=== PATIENT | male | born 1995 | race Caucasian/White ===

== ENCOUNTER → 2018-11-19 09:55 | Outpatient (CLI) | payer OTHER, SELFPAY ==
--- NOTE | 2018-11-19 | CA_ITS ---
APPROVED REPORT EXAM: Comprehensive 2D, Doppler, and color-flow Echocardiogram Clerk Secretary: Marisa Murillo RDCS Ht: 6 ft 2 in Wt: 245lbs BSA: 2.37 BP: 113/65 mmHg Indications: Palpitations, Hypertension/HDD 2D Dimensions LVOT 2.10 cm (M/F) 1.5-2.5 M-Mode Dimensions RVDd 2.90 cm (0.9-2.6) LA Diam 4.20 cm (1.9-4.0) LVDd 5.90 cm (3.5-5.7) Ao Diam 3.10 cm (2.0-3.7) LVDs 4.60 cm (3.5-5.7) AV Cusp 1.60 cm (1.5-2.6) IVSd 0.90 cm (0.6-1.1) PWd 0.90 cm (0.6-1.1) EF (Teich) 43.80% FS 22.00% EDV (Teich) 173.00 mL ESV (Teich) 97.30 mL LV Diastology E/A Ratio 1.7 MED E' 12.00 (< 7 cm/sec) E'/MED E' Ratio 8.10 (>14) LAT E' 21.40 (<10 cm/sec) E/LAT E' Ratio 4.60 (>14) Mitral Valve MV E Max Damon. 97.70 (40-130 cm/s) MV A Velocity 57.80 (40-130 cm/s) E/A Ratio 1.70 Left Ventricle Left atrium is normal size, left ventricle is normal size, there is no concentric left ventricular hypertrophy, visually estimated ejection fraction 55% with no regional wall motion abnormality. Diastolic parameters are within normal range. Right Ventricle Right atrium and right ventricular normal size and contractility. Aortic Valve Aortic valve is normal, there is no aortic stenosis aortic insufficiency. Mitral Valve Mitral valve is normal, there is no mitral stenosis, there is trace mitral regurgitation. Tricuspid Valve Tricuspid valve is grossly normal, there is trace tricuspid regurgitation Pulmonic Valve Pulmonic valve is poorly visualized. Great Vessels Aortic root is normal size. Pericardium No significant pericardial effusion noted. Conclusion 1. Normal left ventricular size, preserved left ventricular systolic function, visually estimated ejection fraction of 55% with no regional wall motion abnormality. Diastolic parameters are within normal range. 2. Trace mitral and tricuspid regurgitation 3. No significant pericardial effusion noted. Electronically signed by : Alcides Love, 11/20/2018 06:08:53
== END ==
PROVIDERS: PCP Internal Medicine Adolescent Medicine; Visit Provider Internal Medicine Adolescent Medicine
DX: R00.2 Palpitations (principal)
CPT/HCPCS: 93306

== ENCOUNTER → 2020-09-16 11:42 | Outpatient (CLI) | payer BC, SELFPAY ==
[2020-09-16 13:45] LABS: Basophils # 0.1 K/mm3 (0-0.2); Eosinophils # 0.1 K/mm3 (0.0-0.4); Eosinophils % 0.8 % (0.1-12.0); Hematocrit 49.1 % (42.0-52.0); Lymphocytes # 0.9 K/mm3 (0.7-4.5); Lymphocytes % 7.8 % (10-50); Mean Corpuscular HGB Conc 34.7 g/dL (31.8-35.4); Mean Corpuscular Volume 83.7 fl (80-94); Mean Platelet Volume 8.6 fl (7.4-10.4); Monocytes # 0.5 K/mm3 (0.1-1.0); Monocytes % 4.2 % (1.7-9.3); Neutrophils # 9.6 K/mm3 (1.8-7.8); Neutrophils % 86.2 % (37.0-80.0); Platelet Count 191 K/mm3 (142-424); Red Blood Count 5.87 M/mm3 (4.60-6.20); Red Cell Distribution Width 13.6 % (11.5-17.5); White Blood Count 11.2 K/mm3 (4.8-10.8)
[2020-09-16 13:52] LABS: MANUAL DIFFERENTIAL MANUAL DIFFERENTIAL (MANUAL DIFF)
[2020-09-16 14:04] LABS: Lymphocytes % 12 % (10-50); Monocytes % 9 % (2-9); Neutrophils % 79 % (42-76); Platelet Estimate Normal; RBC Morphology Normal; Total Cells Counted 100
[2020-09-16 14:09] LABS: Chloride 104 mmol/L (98-107); Sodium 138 mmol/L (136-145)
[2020-09-16 14:12] LABS: Alanine Aminotransferase 23 U/L (12-78); Albumin Level 3.9 g/dl (3.5-5.0); Albumin/Globulin Ratio 1.4 (1.1-1.8); Alkaline Phosphatase 70 U/L (38-126); Aspartate Amino Transferase 30 U/L (17-59); Bilirubin,Total 0.7 mg/dl (0.2-1.3); Blood Urea Nitrogen 13 mg/dl (9-20); Calcium 9.1 mg/dl (8.4-10.2); Carbon Dioxide 21 mmol/L (22.0-30.0); Estimated Glomerular Filt Rate 81 ml/min (>60); GFR (African American) 98 ML/MIN (>60); Globulin 2.7 g/dL (1.3-3.2); Glucose 103 mg/dl (74-100); Total Protein,Serum 6.6 g/dl (6.3-8.2)
== END ==
PROVIDERS: Visit Provider Internal Medicine Adolescent Medicine
DX: Z11.52 Encounter for screening for COVID-19 (principal); R50.9 Fever, unspecified; R05 Cough
CPT/HCPCS: 36415; 80053; 85007; 85025; U0003

== ENCOUNTER → 2021-11-28 16:12 | Outpatient (CLI) | payer BC, SELFPAY | PROVIDERS: PCP Internal Medicine Adolescent Medicine; Visit Provider Nurse Practitioner Family | DX: R00.1 Bradycardia, unspecified (principal); R53.83 Other fatigue | CPT/HCPCS: 93225; 93226 ==

== ENCOUNTER → 2021-12-08 14:59 | Outpatient (CLI) | payer BC, SELFPAY ==
--- NOTE | 2021-12-08 | CA_ITS ---
APPROVED REPORT EXAM: Comprehensive 2D, Doppler, and color-flow Echocardiogram Pumpman: Tameka Miller, DANYELL, RVS Ht: 6 ft 2 in Wt: 245lbs BSA: 2.37 BP: 113/65 mmHg Indications: Bradycardia 2D Dimensions Aortic Root 2.88 cm LA Volume 54.20 mL Left Atrium 3.49 cm LA Volume Index 22.90 mL/m2 (M/F) 16-34 LVOT 1.83 cm (M/F) 1.5-2.5 M-Mode Dimensions RVDd 3.13 cm (0.9-2.6) LA Diam 4.00 cm (1.9-4.0) LVDd 5.59 cm (3.5-5.7) Ao Diam 2.99 cm (2.0-3.7) LVDs 2.89 cm (3.5-5.7) IVSd 1.04 cm (0.6-1.1) PWd 1.08 cm (0.6-1.1) EF (Teich) 79.20% EPSs 0.20 cm FS 48.30% EDV (Teich) 153.00 mL TAPSE 2.83 (<1.7) ESV (Teich) 31.90 mL LV Diastology E Decel Time 170.00 (160-240 msec) E/A Ratio 2.68 MED E' 12.20 (< 7 cm/sec) MED A' 8.80 cm/s E'/MED E' Ratio 8.14 (>14) LAT E' 18.80 (<10 cm/sec) LAT A' 11.50 cm/s E/LAT E' Ratio 5.28 (>14) Aortic Valve LVOT Max 111.00 (70-110 cm/s) LVOT VTI 23.07 cm AoV Peak Damon. 146.00 (50-130 cm/s) AO Peak GR. 8.50 mmHg AO Mean GR. 4.20 (<5 mmHg) AO VTI 29.34 (18-25 cm) AYANA (VTI) 2.07 (2.5-4.5 cm2) Mitral Valve MV A Velocity 37.00 (40-130 cm/s) E/A Ratio 2.68 MV Decel. Time 170.00 (160-240 ms) Pulmonary Valve PV Peak Velocity 110.00 (50-150 cm/s) Tricuspid Valve TR P. Velocity 165.00 cm/s Left Ventricle Left atrium is normal size, left ventricle is normal size there is no concentric left ventricular hypertrophy, estimated ejection fraction 55% with no regional wall motion abnormality, diastolic parameters are within normal range. Right Ventricle Right atrium and right ventricle are normal size and contractility. Aortic Valve Aortic valve is grossly normal, there is no aortic stenosis or aortic insufficiency. Mitral Valve Mitral valve grossly normal, there is no mitral stenosis or mitral regurgitation. Tricuspid Valve Tricuspid valve is grossly normal, there is no significant tricuspid regurgitation noted. Pulmonic Valve Pulmonic valve is poorly visualized Great Vessels Aortic root is normal size. Inferior vena cava is normal size with normal inspiratory collapse. Pericardium No significant pericardial effusion noted. Conclusion 1. Normal left ventricular size preserved left ventricular systolic function, estimated ejection fraction 55% with no regional wall motion abnormality, diastolic parameters are within normal range. 2. No significant pericardial effusion noted. 3. Inferior vena cava is normal size with normal inspiratory collapse. Electronically signed by : Alcides Love MD 12/09/2021 11:55:59
== END ==
PROVIDERS: PCP Internal Medicine Adolescent Medicine; Visit Provider Nurse Practitioner Family
DX: R40.0 Somnolence; R06.83 Snoring; G47.39 Other sleep apnea; I10 Essential (primary) hypertension; R00.1 Bradycardia, unspecified; R00.2 Palpitations
CPT/HCPCS: 93306; G0399

== ENCOUNTER → 2023-02-14 16:53 | Outpatient (CLI) | payer OTHER, SELFPAY ==
[2023-02-14 16:31] LABS: Basophils # 0.1 K/mm3 (0-0.2); Basophils % 0.9 % (0.1-2.0); Eosinophils # 0.3 K/mm3 (0.0-0.4); Eosinophils % 3.6 % (0.1-12.0); Hematocrit 51.9 % (42.0-52.0); Hemoglobin 17.3 g/dL (14.1-18.0); Lymphocytes # 2.1 K/mm3 (0.7-4.5); Lymphocytes % 25.4 % (10-50); Mean Corpuscular HGB Conc 33.3 g/dL (31.8-35.4); Mean Corpuscular Hemoglobin 29.4 pg (27.0-31.2); Mean Corpuscular Volume 88.5 fl (80-94); Mean Platelet Volume 8.4 fl (7.4-10.4); Monocytes # 0.5 K/mm3 (0.1-1.0); Monocytes % 6.2 % (1.7-9.3); Neutrophils # 5.3 K/mm3 (1.8-7.8); Neutrophils % 63.9 % (37.0-80.0); Platelet Count 242 K/mm3 (142-424); Red Blood Count 5.87 M/mm3 (4.60-6.20); Red Cell Distribution Width 13.8 % (11.5-17.5); White Blood Count 8.3 K/mm3 (4.8-10.8)
[2023-02-14 16:37] LABS: Alanine Aminotransferase 50 U/L (12-78); Albumin Level 4.7 g/dl (3.5-5.0); Albumin/Globulin Ratio 1.7 (1.1-1.8); Alkaline Phosphatase 72 U/L (38-126); Aspartate Amino Transferase 52 U/L (17-59); Bilirubin,Total 0.9 mg/dl (0.2-1.3); Blood Urea Nitrogen 13 mg/dl (9-20); Calcium 9.2 mg/dl (8.4-10.2); Carbon Dioxide 27 mmol/L (22.0-30.0); Chloride 100 mmol/L (98-107); Cholesterol 205 mg/dl (140-200); Estimated Glomerular Filt Rate 79 ml/min (>60); GFR (African American) 96 ML/MIN (>60); Globulin 2.8 g/dL (1.3-3.2); Glucose 65 mg/dl (74-100); HDL Cholesterol 41 mg/dl (40-60); Sodium 137 mmol/L (136-145); Total Protein,Serum 7.5 g/dl (6.3-8.2); Triglycerides 101 mg/dl (30-150); VLDL Cholesterol 20 mg/dL (0-40)
[2023-02-14 17:07] LABS: Anion Gap 14.2 mEq/L (5-15); Potassium 4.2 mmoL/L (3.5-5.1)
[2023-02-14 17:20] LABS: Direct LDL Cholesterol 131.79 mg/dL (100-129)
== END ==
PROVIDERS: PCP Family Medicine; Visit Provider Family Medicine
DX: I10 Essential (primary) hypertension (principal)
CPT/HCPCS: 80053; 80061; 85025

== ENCOUNTER 2023-06-28 07:53 | Day surgery (SDC) | payer OTHER, SELFPAY ==
[2023-06-27 11:04] VITALS: BMI 28.2
[2023-06-28 08:09] VITALS: BP 126/58; PULSE 49; RESP 18; TEMP 36.1; O2SAT 100; BMI 28.2
[2023-06-28] MEDS: LACTATED RINGERS 1000ML 1,000 ML 25 ML IV (08:09)
--- NOTE | 2023-06-28 08:36 | P.PNANES_ITS ---
[facility] Disclaimer: The information contained in this section may have been updated after the patient was seen, as this information can be updated by other users. Medical History Chronic GERD Surgical History History of esophagogastroduodenoscopy (EGD) History of knee surgery History of tonsillectomy Family History Mother Lupus Social History Smoking Status: Never smoker second hand exposure: No alcohol intake: current alcohol intake frequency: holidays/special occasions only substance use type: denies use current occupational status: employed Travel in the last 8 weeks: None household members: spouse and children housing: house marital status: current occupation: [employer] current occupational exposures/hazards: No caffeine: Yes [facility] Anesthesia Checklist Patient Identification Patient Identification: Verbal (Name & ) Structural Data Admitted From: Home Planned Operative Procedure/s: egd Consent for Planned Operative Procedure(s) Verified: Yes Additional verifications Anesthesia Reactions: No Airway Assessment Mallampati Score:: Class II C-Spine Mobility Assessed: Yes TMJ Mobility Assessed: Yes Dentition: Good Dentition Neurological Assessment Level of Consciousness: Awake, Alert and Appropriate Anesthesia Plan Anesthesia Risk discussed: Yes Anesthesia Plan: Verified ASA Class: II Anesthesia Type: MAC
[2023-06-28 09:03] VITALS: O2SAT 100
--- NOTE | 2023-06-28 09:17 | HMH.SCOPE ---
Procedure: Date: 06/28/23 Patient Date of :: 1995 Procedure Performed:: EGD & biopsies & bougie dilation Indications:: Hx of EoE and dysphagia Performing Provider:: Toshia Ambrocio MD Referring Provider:: Leila Ambrocio APRN Sedation:: Propofol Procedure:: The gastroscope was gently passed through the incisoral orifice into the oral cavity and under direct visualization the esophagus was intubated. The endoscope was passed down the esophagus, through the stomach, and into the duodenum. Color, texture, mucosa, and anatomy of the esophagus, stomach, and duodenum were carefully examined with the scope. Findings:: Oropharynx: normal Esophagus: normal w/o obvious strictures. Random biopsies obtained. Empiric dilation performed with 58F Bougie. EG Junction: intact at 40 cm Cardia: normal Fundus: normal Body: normal Antrum: normal Duodenal bulb: normal Duodenum (second and third portion): normal Impression: Resolving EoE Specimens:: Esophageal Recommendations:: Continue with current therapy which appears to be effective Complications:: None Estimated blood obtained (mL): 0 Colonoscopy Component Colonoscopy Component Was a colonoscopy performed during today's procedure?: No
[2023-06-28 09:19] VITALS: BP 102/48; PULSE 61; RESP 18; TEMP 36.3; O2SAT 95
[2023-06-28 09:29] VITALS: BP 121/61; PULSE 70; RESP 18; TEMP 36.3; O2SAT 97
[2023-06-28 09:39] VITALS: BP 111/61; PULSE 62; RESP 18; TEMP 36.3; O2SAT 97
== END 2023-06-28 09:39 | disposition home or self-care (01) ==
PROVIDERS: PCP Family Medicine; Visit Provider Internal Medicine Gastroenterology
PROC: 0DJ08ZZ Inspection of Upper Intestinal Tract, Via Natural or Artificial Opening Endoscopic (ICD-10-PCS; CPT 43235; principal; 2023-06-28 09:00)
DX: R13.10 Dysphagia, unspecified (principal); K20.0 Eosinophilic esophagitis
CPT/HCPCS: 43239; 43248

== ENCOUNTER 2024-07-01 07:30 | Outpatient (CLI) | payer OTHER, SELFPAY ==
[2024-07-01 17:37] LABS: Basophils # 0.1 K/mm3 (0-0.2); Basophils % 0.7 % (0.1-2.0); Eosinophils # 0.1 Kmm3 (0.0-0.4); Eosinophils % 1.9 % (0.1-12.0); Hematocrit 49.5 % (42.0-52.0); Hemoglobin 16.6 g/dL (14.1-18.0); Immature Granulocytes # 0.04 10^3uL; Immature Granulocytes % 0.6 %; Lymphocytes # 2.2 K/mm3 (0.7-4.5); Lymphocytes % 31.7 % (10-50); Mean Corpuscular HGB Conc 33.5 g/dL (31.8-35.4); Mean Corpuscular Hemoglobin 29.4 pg (27.0-31.2); Mean Corpuscular Volume 87.6 fl (80-94); Mean Platelet Volume 10.8 fl (7.4-10.4); Monocytes # 0.5 K/mm3 (0.1-1.0); Monocytes % 7.2 % (1.7-9.3); Neutrophils # 4.1 K/mm3 (1.8-7.8); Neutrophils % 57.9 % (37.0-80.0); Nucleated Red Blood Cells # 0 10^3/uL; Nucleated Red Blood Cells % 0 %; Platelet Count 235 K/mm3 (142-424); Red Blood Count 5.65 M/mm3 (4.60-6.20); Red Cell Distribution Width 13.7 % (11.5-17.5); Red Cell Distribution Width-SD 44.1 fL
[2024-07-01 18:46] LABS: 25-OH Vitamin D, Total 33.9 ng/mL (30-100)
[2024-07-01 18:51] LABS: Alanine Aminotransferase 42 U/L (12-78); Alkaline Phosphatase 55 U/L (38-126); Aspartate Amino Transferase 42 U/L (17-59); Bilirubin,Total 0.8 mg/dl (0.2-1.3); Calcium 9.3 mg/dl (8.4-10.2); Chloride 105 mmol/L (98-107); Chol/HDL Ratio 4.5 (1-3.5); Cholesterol 191 mg/dl (140-200); HDL Cholesterol 42 mg/dl (40-60); Potassium 4.7 mmoL/L (3.5-5.1); Sodium 138 mmol/L (136-145); Triglycerides 117 mg/dl (30-150); VLDL Cholesterol 23 mg/dL (0-40)
[2024-07-01 18:54] LABS: Albumin Level 4.8 g/dl (3.5-5.0); Albumin/Globulin Ratio 2.2 (1.1-1.8); Anion Gap 9.7 mEq/L (5-15); Blood Urea Nitrogen 14 mg/dl (9-20); Carbon Dioxide 28 mmol/L (22.0-30.0); Estimated Glomerular Filt Rate 99 ml/min (>60); GFR (African American) 120 ML/MIN (>60); Globulin 2.2 g/dL (1.3-3.2)
[2024-07-01 19:02] LABS: Direct LDL Cholesterol 118.39 mg/dL (100-129)
[2024-07-01 19:16] LABS: HIV Combo NEGATIVE (Negative)
[2024-07-01 19:20] LABS: Thyroid Stimulating Hormone 3.55 uIU/mL (0.465-4.68)
[2024-07-01 19:39] LABS: Vitamin B12 750 pg/mL (239-931)
[2024-07-01 19:54] LABS: Glucose 50 mg/dl (74-100)
[2024-07-01 21:00] LABS: Hepatitis C Ab Qual. W/ RFX NEGATIVE (Negative)
== END 2024-07-01 23:59 | disposition home or self-care (01) ==
LOC: LAB.DROPOF 07-02 10:34
PROVIDERS: PCP Family Medicine; Visit Provider Family Medicine
DX: I10 Essential (primary) hypertension (principal); R53.83 Other fatigue; Z11.4 Encounter for screening for human immunodeficiency virus [HIV]; Z11.59 Encounter for screening for other viral diseases
CPT/HCPCS: 80053; 80061; 82306; 82607; 84402; 84403; 84443; 85025; 86803; 87389

== ENCOUNTER 2024-10-17 10:52 | Emergency (ER) | payer OTHER, SELFPAY ==
[2024-10-17 11:56] VITALS: BP 148/85; PULSE 51; RESP 18; TEMP 37.1; O2SAT 100; BMI 31.8
[2024-10-17 11:58] VITALS: BP 137/82; PULSE 42; RESP 18; TEMP 36.8; O2SAT 97
[2024-10-17 12:06] LABS: Microscopic, Urine URINE MICROSCOPIC (MICROSCOPIC)
[2024-10-17 12:10] LABS: Bilirubin,Urine Negative (Negative); Color,Urine YELLOW (Yellow); Glucose,Urine (UA) Negative (Negative); Ketones,Urine Negative (Negative); Leukocyte Esterase,Urine Negative (Negative); PH,Urine 7.0 (5.0-8.5); Protein,Urine Negative (Negative); Specific Gravity, Urine 1.020 (1.005-1.030); Urobilinogen,Urine 0.2 EU/dl (0.2)
[2024-10-17 12:23] LABS: Bacteria,Urine 2+ /lpf
--- NOTE | 2024-10-17 12:47 | PC.NURSE ---
1154- patient triaged and sent back to lobby. UA collected and sent during triage. will place patient in room when one becomes available.
--- OUTSIDE RECORDS SUMMARY | 2024-10-17 13:02 | XMS_ITS | Encounter Summary ---
Author Organization [facility] Address [address] [place] [address] Care Team Providers Care Supervisor Cleaning And Annealing Name Role Phone Mark Pinedo MD Primary Care Provider [phone] Reason for Referral * Consultation (Routine) - Closed Specialty Diagnoses / Procedures Referred By Esther cherry Referred To Contact Cardiology Diagnoses Bradycardia Rosette Dawkins, CASTING TRUCKER [address] [place] [address] Phone: tel: fax: Referral ID Status Reason Start Date Expiration Date V isits Requested Visits Authorized [id number] Closed Specialty Services Required 12/02/2021 06/03/2023 1 1 Encounter Details Date Type Department Care Team (Late st Contact Info) Description 12/02/2021 [facility] [address] [place] [address] Rosette Dawkins, CASTING TRUCKER [address] [place] [address] Bradycardia (Primary Dx) Social History Tobacco Use Types Packs/Day Years Used Date Smoking Tobacco: Never Assessed Sex and Gender Information Value Date Recorded Sex Assigned at Not on file Legal Sex Male 8:40 PM EDT Gender Identity Not on file Sexual Orientation Not on file documented as of this encounter Plan of Treatment Scheduled Referrals Name Type Priority Associated Diagnoses Order Schedule Ambulatory referral to Cardiac Electrophysiology Outpatient Referral Routine Bradycardia Expected: 12/02/2021 (Approximate), Expires: 06/03/2023 documented as of this encounter Visit Diagnoses Diagnosis Bradycardia- Primary Other specified cardiac dysrhythmias documented in this encounter Care Teams Supervisor Cleaning And Annealing Relationship Specialty Start Date End Date Mark Pinedo MD [address] [place] [address] PCP - General 07/09/20 documented as of this encounter
--- OUTSIDE RECORDS SUMMARY | 2024-10-17 13:02 | XMS_ITS | Clinical Summary ---
Author Organization [facility] Address [address] [place] [address] Care Team Providers Care Sailmaker Name Role Phone Mark Pinedo MD Primary Care Provider [phone] Allergies Active Allergy Reactions Criticality Noted Date Comments Cashew Nut Oil Other - please docum ent in the comment field Low 2021 Grapes Other - please docum ent in the comment field Low 2021 Peanut (Diagnostic) Other - please docum ent in the comment field Low 2021 Medications albuterol 108 (90 Base) MCG/ACT inhaler Inhale 2 puffs every 6 (six) hours if needed. Active Beclomethasone Diprop HFA 80 MCG/ACT aerosol Inhale 2 (two) times a day. Active omeprazole (PriLOSEC) [address] capsule Take 20 mg by mouth 2 (two) times a day. Do not crush or chew. Active lisinopril 20 MG tablet Take 20 mg by mouth 1 (one) time each day. Active Dupixent 300 MG/2ML solution pen-injector 09/03/2023 Active Active Problems Problem Noted Date Diagnosed Date Asthma 2021 Murmur, heart 2021 Complete tear of MCL of knee 2021 Bradycardia 2021 Family History Medical History Relation Name Comments KADIE disease Father Diabetes type I Maternal Grandmother Heart disease Maternal Grandmother Hyperlipidemia Maternal Grandmother Hypertension Maternal Grandmother Diabetes type I Mother Hyperlipidemia Mother Hypertension Mother Thyroid disease Mother Heart disease Paternal Grandfather Heart disease Paternal Grandmother Hyperlipidemia Paternal Grandmother Hypertension Paternal Grandmother Heart disease Sister Hyperlipidemia Sister Relation Name Status Comments Father Alive Maternal Grandmother Alive Mother Alive Paternal Grandfather Paternal Grandmother Alive Sister Alive Social History Tobacco Use Types Packs/Day Years Used Date Smoking Tobacco: Never Smokeless Tobacco: Never Alcohol Use Standard Drinks/Week Comments Defer 0 (1 standard drink = 0.6 oz pur e alcohol) PHQ-2 Answer Date Recorded Patient Health Questionnaire-2 Score 0 01/10/2022 PHQ-2A Answer Date Recorded Patient Health Questionnaire-2 Score 0 01/10/2022 Sex and Gender Information Value Date Recorded Sex Assigned at Not on file Legal Sex Male 8:40 PM EDT Gender Identity Not on file Sexual Orientation Not on file Last Filed Vital Signs Vital Sign Reading Time Taken Comments Blood Pressure 137/84 09/17/2023 8:37 AM EDT Pulse 71 01/10/2022 10:29 AM EST Temperature - - Respiratory Rate - - Oxygen Saturation 99% 01/10/2022 10:29 AM EST Inhaled Oxygen Concentration - - Weight 110 kg (243 lb) 09/17/2023 8:37 AM EDT Height 188 cm (6' 2 ) 09/17/2023 8:37 AM EDT Body Mass Index 31.2 09/17/2023 8:37 AM EDT Plan of Treatment Health Maintenance Due Date Last Done Comments [facility]-HIV Screening 1995 [facility]-Hepatitis C Screening 1995 [facility]-/Child/Adol SDOH Screenings 1993 [facility]-Varicella Vaccines (1 of 2 - 13+ 2-dose series) 2006 [facility]- SDOH Screenings 12/08/2011 [facility]-Adult SDOH Screenings 12/08/2011 [facility]-DTaP,Tdap,and Td Vaccine s (1 - Tdap) 2012 [facility]-Hepatitis B Vaccines (1 of 3 - 19+ 3-dose series) 2012 [facility]-Pneumococcal Vaccine: Pediatrics (0 to 5 Years) and At-Risk Patients (6 to 49 Years) (1 of 2 - PCV) 2012 HPV Vaccines (1 - 3-dose SCD M series) 2020 [facility]-Depression Screening 01/10/2023 01/10/2022 [id number] Vaccine ( season) 2023 01/13/2021, 06/24/2020, 05/26/2020 [facility]-Influenza Vaccine (#1) 2024 [facility]-Zoster Vaccines (1 of 2) 12/08/2043 [facility]-Obesity Intervention Completed 024, 01/10/2022 [facility]-HIB Vaccines Aged Out No longer e ligible based on patient's age to complete this topic [facility]-Hepatitis A Vaccines Aged Out No longer eligible based on patient's age to complete this topic [facility]-IPV Vaccines Aged Out No longer e ligible based on patient's age to complete this topic [facility]-Rotavirus Vaccines Aged Out No lo nger eligible based on patient's age to complete this topic Insurance Care Teams Sailmaker Relationship Specialty Start Date End Date Mark Pinedo MD [address] [place] [address] PCP - General 07/09/20
--- NOTE | 2024-10-17 13:42 | PC.NURSE ---
provider with patient
--- NOTE | 2024-10-17 13:53 | ED_ITS ---
<Statement entered by Lazaro Kelly MD - 10/17/24 18:24> I consulted the MATHIEU, and we discussed the complexity of the problems being addressed. I approved the treatment and management plan for this patient's care in the emergency department, thus performing a substantial portion of the medical decision making. Frederic Kelly MD Discharge Plan Disposition Patient Disposition: Home, Self-Care Condition: Good Prescriptions Prescriptions: No Action lisinopril 20 mg tablet 20 mg PO DAILY 90 Days Qty: 90 1RF Dupixent Pen 300 mg/2 mL pen injector 300 mg SQ WEEKLY Qty: 4 2RF Referrals Follow up/Referrals: Kenneth Humphreys MD [Primary Care Provider, Internal Medicine] - See instructions Diego Sanchez II, MD [Staff Physician, Gastroenterology] - See instructions Activity Restrictions/Add. Instructions Additional Instructions/Restrictions: Please return to the emergency department with any worsening signs or symptoms. Could benefit from [id number] antacid medication as needed for breakthrough symptoms. Please follow-up with your GI physician. Clinical Impressions Clinical Impression: Eosinophilic esophagitis, GERD (gastroesophageal reflux disease) Instructions Patient Instructions: DI for Gastroesophageal Reflux Disease (GERD), DI for Esophagitis Print Language Print Language: Ghanaian Discharge ED Provider: Lazaro Kelly General Adult HPI General Chief complaint: Abdominal Pain Stated complaint: abd pain, headache x 2 days Time Seen by Provider: 10/17/24 13:30 Mode of Arrival: Ambulatory Source of Information: Patient Description of Symptoms (Recalled from ER Triage Doc. by RN): patient presents to the ED today for abdominal cramping that started sunday. rates his pain 10/10, reports nausea but no vomiting. History of Present Illness HPI narrative: 28-year-old male presents the emergency department with 2 to 3-day history of abdominal cramping, nausea, poor p.o. intake due to the pain, which prevents patient from eating, denies any fever or chills denies chest pain denies shortness of breath, denies any episodes of vomiting, no diarrhea no constipation, urinary type symptomatology, patient is a non-smoker, denies any alcohol or drug use, no melena or hematochezia no hematemesis, other past medical history consistent with eosinophilic esophagitis, hypertension, recent vasectomy 2 weeks ago, initial triage vitals unremarkable. Please note that above description of symptoms, in this electronic medical record under categorization of recalled from ER triage doctor by RN are reflective of an initial nursing assessment, however, is not reflective of my full history and physical exam that was personally taken and clarified. Consequentially, this preceding description of symptoms, which may include the patient's categorized chief complaint in the EMR, do not reflect my personal clinical impression, and the ultimate description of history of present illness and patient stated complaints should be deferred to this section of the note. Unless stated otherwise or congruent with this section of the note, additional signs, symptoms, or incongruence should be interpreted as inaccurate with my clinical impression. Onset (ago): day(s) Related Data Previous Rx's ?Medication ?Instructions ?Recorded lisinopril 20 mg tablet 20 mg PO DAILY blood pressur e 90 05/09/24 days #90 tabs dupilumab 300 mg/2 mL subcutaneous 300 mg (2 mL) SQ WE EKLY 10/08/24 pen injector (Dupixent) Eosinophilic esophagitis: #4 mL Allergies Allergy/AdvReac Type Severity Reaction Status Date / Time No Known Allergies Allergy Verified 07/01/24 12:03 [facility] Disclaimer: The information contained in this section may have been updated after the patient was seen, as this information can be updated by other users. Medical History Chronic GERD Surgical History History of esophagogastroduodenoscopy (EGD) History of tonsillectomy History of knee surgery Family History Mother Lupus Social History Smoking Status: Never smoker second hand exposure: No alcohol intake: current alcohol intake frequency: holidays/special occasions only substance use type: denies use current occupational status: employed Travel in the last 8 weeks?: None household members: spouse and children housing: house marital status: current occupation: [employer] current occupational exposures/hazards: No caffeine: Yes Have you lived/traveled outside [place] in past 30 days?: No Contact w/someone who lives/traveled outside US past 30 days?: No Exposure to someone with infectious disease in past 14 days?: No Do you have a fever (greater than 100.4 F or 38 C)?: No Have you tested positive for COVID-19?: No Exposed to someone with COVID-19 in past 14 days?: No Do you have a sore throat?: No Do you have a cough?: No Do you have any weakness?: No Do you have any diarrhea?: No Are you experiencing any unusual bleeding?: No Do you have any muscle aches/pain?: No Do you have any abdominal pain?: No Are you experiencing loss of taste or smell?: No Other Medical History Have you received the Flu Vaccine for this season: No Have you received the Pneumonia Vaccine: No ROS Obtained: Yes All systems reviewed & no additional complaints except as documented Physical Exam General General appearance: alert and in no apparent distress Head Head exam: atraumatic and normocephalic Eye Eye exam: Present PERRL and EOMI ENT ENT exam: Present mucous membranes moist Neck Neck exam: Present normal inspection Chest Chest inspection: Present normal inspection and symmetric chest wall rise Respiratory Respiratory exam: Present normal lung sounds bilaterally; Absent respiratory distress, wheezes or stridor Cardiovascular Cardiovascular exam: Present regular rate and normal rhythm Abdominal Exam Abdominal exam: Present soft, tenderness and Beasley's sign; Absent guarding, rebound or rigidity Abdominal tenderness: Present RUQ Extremities Exam Extremities exam: Present normal inspection Neurological Exam Neurological exam: Present alert and oriented X3 Psychiatric Psychiatric exam: Present normal affect Skin Skin exam: Present warm and dry Medical Decision Making Medical Records Medical records reviewed: Yes I reviewed the patient's medical records. Screening: Per USPSTF and CDC recommendations, given the prevalence of disease in our region, it is our hospital?s policy to screen for HIV and viral Hepatitis for all patients aged 18 and over and those with ongoing risk factors. Ant Inquiry Pt receiving controlled substance: No Ant was queried for this patient: No Vital Signs: 10/17/24 11:56 10/17/24 11:58 Temperature 98.8 F 98.2 F Temperature Source Oral Temporal Artery Scan Pulse Rate 42 L Pulse Rate [Right Radial] 51 L Respiratory Rate 18 18 Blood Pressure 137/82 Blood Pressure [Right Arm] 148/85 H Blood Pressure Mean [Right Arm] 106 Blood Pressure Source Automatic Cuff Blood Pressure Source [Right Arm] Automatic Cuff Blood Pressure Position Sitting Blood Pressure Position [Right Arm] Supine 02 Sat by Pulse Oximetry 100 97 Oxygen Delivery Method Room Air Room Air Lab Data Lab results reviewed: Yes I reviewed the patient's lab results. Lab Results 10/17/24 12:03: Urine Color Yellow, Urine Appearance Clear, Urine pH 7.0, Ur Specific [place] 1.020, Urine Protein Negative, Urine Glucose (UA) Negative, Urine Ketones Negative, Urine Blood Negative, Urine Nitrate Negative, Urine Bilirubin Negative, Urine Urobilinogen 0.2, Ur Leukocyte Esterase Negative, Urine RBC None, Urine WBC None, Ur Squamous Epith Cells None, Urine Bacteria 2+ 10/17/24 14:06: WBC 10.2, RBC 5.65, Hgb 16.3, Hct 48.8, MCV 86.4, MCH 28.8, MCHC 33.4, RDW 13.2, Plt Count 240, MPV 9.8, Neut % (Auto) 73.5, Lymph % (Auto) 19.9, [place] % (Auto) 5.1, Eos % (Auto) 0.8, Baso % (Auto) 0.3, Neut # (Auto) 7.5, Lymph # (Auto) 2.0, [place] # (Auto) 0.5, Eos # (Auto) 0.1, Baso # (Auto) 0.0, Sodium 138, Potassium 4.3, Chloride 106, Carbon Dioxide 24, Anion Gap 12.3, BUN 11, Creatinine 0.80, Estimated Creat Clear 204, Estimated GFR 114, Est GFR ( Amer) 137, Glucose 90, Calcium 9.5, Total Bilirubin 1.0, AST 38, ALT 31, Alkaline Phosphatase 73, Troponin I < 0.01, NT-Pro-B Natriuret Pep 186 H, Total Protein 7.2, Albumin 4.6, Globulin 2.6, Albumin/Globulin Ratio 1.8, Lipase 113, Plasma/Serum Alcohol < 10 10/17/24 14:06 10/17/24 14:06 Orders (Tests/Meds): ED MEDICATIONS Discontinued Medications Generic Name Dose Route Start Last Admin Trade Name Freq PRN Reason Stop Dose Admin Belladonna Alkaloids 60 ml 10/17/24 15:20 Belladonna Alkaloids 60 Ml Ml PO 10/17/24 15:21 ONCE ONE Iopamidol 75 ml 10/17/24 14:40 10/17/24 14:41 Iopamidol-370 (76%);100ml Bottle IV 10/17/24 14:41 75 ml ONCE ONE Administration Ondansetron HCl 4 mg 10/17/24 13:48 10/17/24 13:58 Ondansetron 4mg/2ml Vial IV 10/17/24 13:49 4 mg ONCE ONE Administration Sodium Chloride 10 ml 10/17/24 14:40 10/17/24 14:41 Sodium Chloride 0.9% 10ml Syr (Rad Only) IV 10/17/24 14:41 10 ml ONCE ONE Administration ORDERS Category Date Time Status CT abdomen pelvis w con Stat Cat Scan 10/17/24 13:58 Completed Complete Blood Count Auto Diff Stat Lab 10/17/24 14:06 Completed Comprehensive Metabolic Panel Stat Lab 10/17/24 14:06 Completed Ethanol [Ethyl Alcohol] Stat Lab 10/17/24 14:06 Completed Lactic Acid Stat Lab 10/17/24 13:48 Ordered Lipase Stat Lab 10/17/24 14:06 Completed NT Pro Brain Natriuretic Pep. Stat Lab 10/17/24 14:06 Completed Troponin I Q3H Lab 10/17/24 17:00 Ordered Troponin I Q3H Lab 10/17/24 20:00 Ordered Troponin I Stat Lab 10/17/24 14:06 Completed UA [Urinalysis and Microscopic] Stat Lab 10/17/24 12:03 Completed Urine Culture Stat Micro 10/17/24 12:03 Received Medical Decision Narrative: 28-year-old male presents to the emergency department with epigastric pain nausea for 2 days, poor p.o. intake, differential diagnosis include but not limited to, ACS, cardiac arrhythmia, electrolyte disturbance, gastritis, GERD, PUD, pancreatitis, cholelithiasis, choledocholithiasis, cholecystitis among others. I discussed this patient's case with attending physician he saw and examined the patient as well. Will obtain basic laboratory studies, EKG, ethyl alcohol level, lactic acid level, lipase level, proBNP, troponin, will give 4 mg IV Zofran, UA, will obtain CT and pelvis with contrast. CBC unremarkable CMP unremarkable Lipase within normal limits Ethyl alcohol level within normal limits Will give patient GI cocktail for symptomatic relief. proBNP has been elevated at 186 I reviewed the patient's CT abdomen pelvis with contrast along with corresponding radiologic report, enlarged lymph nodes in the right lower quadrant likely due to mesenteric adenitis. I discussed the results with patient the bedside, patient most likely has EOE send for like esophagitis flareup in the setting of gastritis, no other acute pathology on his abdomen pelvis CT, recommend follow-up with GI provider, could benefit him [id number] famotidine versus PPI, he states he has medication at home will trial down, patient was given strict ED return precautions. Patient voiced understanding and agreement with the current treatment plan/discharge plan. Critical Care Critical Care Time Critical Care Time: No
[2024-10-17] MEDS: ONDANSETRON 4MG/2ML VIAL 4 MG IV (13:58)
--- NOTE | 2024-10-17 13:58 | CT_ITS ---
FINAL REPORT TECHNIQUE: After the administration of intravenous contrast, axial images were obtained through the abdomen and pelvis by computed tomography. This study was performed with technique to keep radiation doses as low as reasonably achievable, (ALARA). Individualized dose reduction techniques using automated exposure control or adjustment of the MA and/or KV according to the patient's size were employed. CLINICAL HISTORY: Epigastric/RUQ pain, nausea FINDINGS: Abdomen: There is a calcified granuloma at the right lung base. Lung bases are otherwise clear. The liver is mildly fatty infiltrated. Gallbladder is present. The spleen is unremarkable. The adrenals are normal. The pancreas is unremarkable. The kidneys enhance appropriately. The aorta is normal in caliber. There is no free fluid or adenopathy. Pelvis: The appendix is normal. The urinary bladder is unremarkable. There are enlarged lymph nodes in the right lower quadrant measuring up to 1.5 cm likely due to mesenteric adenitis. IMPRESSION: Enlarged lymph nodes in the right lower quadrant likely due to mesenteric adenitis. Reviewed, Interpreted and Dictated by Steven Méndez MD Transcribed by Enma Crawford Authenticated and [facility]
--- NOTE | 2024-10-17 14:11 | ECG_ITS ---
APPROVED REPORT Exam: Resting ECG HR:52 bpm ECG Measurements Heart Rate 52 AXES CO 168 P 52 QRSd 98 QRS 41 QT 424 T 41 QTc 405 Conclusion SINUS BRADYCARDIA BORDERLINE ECG No STEMI Electronically signed by : BILL EGAN, 10/18/2024 07:40:09
[2024-10-17 14:17] LABS: Hematocrit 48.8 % (42.0-52.0); Hemoglobin 16.3 g/dL (14.1-18.0); Immature Granulocytes % 0.4 %; Mean Corpuscular HGB Conc 33.4 g/dL (31.8-35.4); Mean Corpuscular Hemoglobin 28.8 pg (27.0-31.2); Mean Corpuscular Volume 86.4 fl (80-94); Nucleated Red Blood Cells % 0 %; Platelet Count 240 K/mm3 (142-424); Red Blood Count 5.65 M/mm3 (4.60-6.20); Red Cell Distribution Width-SD 41.8 fL; White Blood Count 10.2 K/mm3 (4.8-10.8)
[2024-10-17 14:34] LABS: Albumin Level 4.6 g/dl (3.5-5.0); Chloride 106 mmol/L (98-107); Potassium 4.3 mmoL/L (3.5-5.1); Sodium 138 mmol/L (136-145)
[2024-10-17 14:37] LABS: Alanine Aminotransferase 31 U/L (12-78); Albumin/Globulin Ratio 1.8 (1.1-1.8); Alkaline Phosphatase 73 U/L (38-126); Anion Gap 12.3 mEq/L (5-15); Aspartate Amino Transferase 38 U/L (17-59); Bilirubin,Total 1.0 mg/dl (0.2-1.3); Blood Urea Nitrogen 11 mg/dl (9-20); Carbon Dioxide 24 mmol/L (22.0-30.0); Creatinine Clearance Estimated 204 mL/min (50-200); Creatinine,Serum 0.80 mg/dl (0.66-1.25); Estimated Glomerular Filt Rate 114 ml/min (>60); GFR (African American) 137 ML/MIN (>60); Globulin 2.6 g/dL (1.3-3.2); Lipase 113 U/L (23-300); Total Protein,Serum 7.2 g/dl (6.3-8.2)
[2024-10-17 14:38] LABS: Calcium 9.5 mg/dl (8.4-10.2); Glucose 90 mg/dl (74-100)
[2024-10-17] MEDS: SODIUM CHLORIDE 0.9% 10ML SYR (RAD ONLY) 10 ML IV (14:41)
[2024-10-17] MEDS: IOPAMIDOL-370 (76%);100ML BOTTLE 75 ML IV (14:41)
--- NOTE | 2024-10-17 14:41 | PC.NURSE ---
patient in radiology for scans
[2024-10-17 15:05] LABS: Troponin I < 0.01 ng/ml (0.00-0.034)
[2024-10-17 15:26] LABS: NT Pro Brain Natriuretic Pep. 186 pg/mL (0-125)
[2024-10-17] MEDS: BELLADONNA ALKALOIDS 60 ML ML PO (15:33)
[2024-10-17 15:50] VITALS: BP 135/80; PULSE 85; RESP 18; TEMP 36.8; O2SAT 98
== END 2024-10-17 15:53 | disposition home or self-care (01) ==
PROVIDERS: Physician Assistant; Emergency Provider Student in an Organized Health Care Education/Training Program; PCP Family Medicine
DX: R10.11 Right upper quadrant pain (principal); K20.0 Eosinophilic esophagitis; K21.9 Gastro-esophageal reflux disease without esophagitis; R11.0 Nausea
CPT/HCPCS: 74177; 80053; 80320; 81001; 83690; 83880; 84484; 85025; 87086; 93005; 96374; 99284; J2405; Q9967